=== PATIENT | male | born 1990 | race Caucasian/White ===

== ENCOUNTER → 2017-02-14 | Outpatient (CLI) | payer SELFPAY | END | disposition home or self-care (01) | LOC: LABWHC1 14:38 | PROVIDERS: ATTEND Family Medicine | DX: A69.20 Lyme disease, unspecified (principal) | CPT/HCPCS: 36415 ==

== ENCOUNTER → 2017-03-19 | Outpatient (CLI) | payer SELFPAY ==
[2017-03-19 17:26] LABS: Hepatitis C Virus IgG Ab Negative (Negative); Hepatitis C Virus IgG Index 0.02
== END | disposition home or self-care (01) ==
LOC: LABWHC1 15:38
PROVIDERS: ATTEND Family Medicine
DX: R53.82 Chronic fatigue, unspecified (principal); A69.20 Lyme disease, unspecified
CPT/HCPCS: 36415; 86644; 86645; 86803